=== PATIENT | female | born 1930 | race Caucasian/White ===

== ENCOUNTER 2017-07-19 11:31 | Emergency (ER) | payer MEDICARE, BC ==
--- NOTE | 2017-07-19 11:49 | Emergency Department Record ---
History of Present Illness - General Chief Complaint: Difficulty Breathing Stated Complaint: REBECCA Time Seen by Provider: 07/19/17 11:41 Source: Patient, Family Mode of Arrival: Ambulatory Limitations: No limitations - History of Present Illness Initial Comments: 86 yo fe86 yo female presents with shortness of breath. The patient was original from [place]. She was diagnosed with pneumonia. She moved to [place] to rehab near [facility]. She is a former smoker. She is on 2 liters NC. Today the care takers at [facility] noted her oxygen level was low. She was reportedly 67-85%. The patient states she was asymptomatic. On arrival in the ED the patient is asymptomatic at 96% on her 2 Liters. She has been coughing for about 2 month since the pneumonia diagnosis. This is unchanged. She reports she has chronic atrial fibrillation. No fevers. No chest pain. No new edema. No new weakness or changes in her health. Her daughter states when she arrived at [facility] the patient appeared comfortable in her normal state of health. The patient had a heart cath 2 years ago that did not demonstrate any obstructive CAD. She has decided with her doctors to not take life long anticoagulation for her atrial fibrillation. She states she does very well on digoxin and went into CHF when it was discontinued. Normal appetite. No NVD or dysuria MD Complaint: Cough (chronic), Shortness of breath -: Unknown (No symptoms) Severity: Mild (No symptoms) Consistency: Other (Asymptomatic) Improves With: Nothing Worsens With: Nothing Known History Of: Congestive heart failure, COPD, Other Context: Recent URI (Pneumonia) Associated Symptoms: Denies other symptoms Treatments Prior to Arrival: None - Related Data Home Oxygen Therapy: Yes Home Oxygen Amount: 2 Liters Home Medications Medication Instructions Recorded Confirmed Last Taken Aspirin [Aspir-Low] 81 mg PO DAILY 07/19/17 07/19/17 Unknown Budesonide/Formoterol Fumarate 6.9 gm IH BID 07/19/17 07/19/17 Unknown [Symbicort 80-4.5 Mcg Inhaler] Digoxin 125 mcg PO DAILY 07/19/17 07/19/17 07/19/17 Diltiazem HCl [Diltiazem 24Hr Cd] 120 mg PO DAILY 07/19/17 07/19/17 07/19/17 Fenofibrate Nanocrystallized 145 mg PO DAILY 07/19/17 07/19/17 07/19/17 [Fenofibrate] Fluticasone Propionate [Flonase] 2 spray EACH NARES DAILY 07/19/17 07/19/17 Fluticasone/Vilanterol [Breo 1 each IH DAILY 07/19/17 07/19/17 Unknown Ellipta 100-25 Mcg INH] Furosemide [Lasix] 20 mg PO DAILY 07/19/17 07/19/17 07/19/17 Glimepiride [Amaryl] 1 mg PO DAILY 07/19/17 07/19/17 Unknown Ibuprofen [Motrin 400Mg] 400 mg PO Q6H PRN 07/19/17 07/19/17 Unknown Insulin Lispro [Humalog] 1 unit SQ TID 07/19/17 07/19/17 Unknown Ipratropium Br. 0.02% Neb 0.5 mg IH Q4H 07/19/17 07/19/17 Unknown [Atrovent 0.02% Neb] Metoprolol Tartrate [Lopressor] 25 mg PO Q8H 07/19/17 07/19/17 Unknown Pantoprazole Sodium [Protonix] 40 mg PO DAILY 07/19/17 07/19/17 07/19/17 Prednisone [Prednisone 5Mg] 5 mg PO DAILY 07/19/17 07/19/17 07/19/17 Saxagliptin HCl [Onglyza] 5 mg PO DAILY 07/19/17 07/19/17 07/19/17 Temazepam [Restoril] 15 mg PO QHS 07/19/17 07/19/17 07/18/17 Allergies Allergy/AdvReac Type Severity Reaction Status Date / Time belladonna alkaloids Allergy PT UNSURE Verified 07/19/17 11:53 OF REACTION morphine Allergy PT UNSURE Verified 07/19/17 11:53 OF REACTION Review of Systems Constitutional: Denies: Chills, Fever, Malaise, Weakness Eyes: Denies: Eye discharge, Eye pain, Photophobia, Vision change ENT: Denies: Congestion, Throat pain Respiratory: Reports: Cough, Wheezes. Denies: Dyspnea, Hemoptysis, Stridor Cardiovascular: Reports: Palpitations (atrial fibrillation). Denies: Chest pain , Syncope Endocrine: Denies: Fatigue, Polydipsia, Polyuria Gastrointestinal: Denies: Abdominal pain, Diarrhea, Nausea, Vomiting Genitourinary: Denies: Dysuria, Urgency Musculoskeletal: Denies: Arthralgia, Back pain, Joint swelling, Myalgia Skin: Denies: Bruising, Change in color, Rash Neurological: Denies: Numbness, Tremors, Weakness Psychiatric: Denies: Anxiety Hematological/Lymphatic: Denies: Easy bleeding, Easy bruising, Swollen glands Physical Exam - General General Appearance: Alert, Oriented x3, Cooperative, No acute distress, Other ( Well appearing, no conversational dyspnea) Limitations: No limitations - Head Head exam: Normal inspection - Eye Eye exam: Normal appearance, PERRL. negative: Conjunctival injection, Scleral icterus - ENT ENT exam: Normal exam, Mucous membranes moist Ear exam: Normal external inspection Nasal Exam: Normal inspection Mouth exam: Normal external inspection - Neck Neck exam: Normal inspection - Respiratory Respiratory exam: Wheezes (very faint end expiratory wheeze), Other (Calm breathing). negative: Accessory muscle use, Chest wall tenderness, Decreased breath sounds, Rales, Respiratory distress, Rhonchi, Stridor - Cardiovascular Cardiovascular Exam: Regular rate, Normal heart sounds, Irregular rhythm Peripheral Pulses: 2+: Radial (R), Radial (L) - GI/Abdominal GI/Abdominal exam: Soft. negative: Tenderness - Rectal Rectal exam: Deferred - exam: Deferred - Extremities Extremities exam: Normal inspection, Full ROM, Normal capillary refill. negative: Calf tenderness, Pedal edema, Tenderness - Back Back exam: Reports: Normal inspection - Neurological Neurological exam: Alert, Normal gait, Oriented X3 - Psychiatric Psychiatric exam: Normal affect, Normal mood - Skin Skin exam: Dry, Intact, Normal color, Warm Course - Reevaluation(s) Reevaluation #1: EKG irregular ectopic rhythm rate is 71, intervals normal, axis L, NS ST changes. No old. The pulse ox remains at 96% on her 2 LNC. The patient is not short of breath, no conversational dyspnea. 07/19/17 12:18 07/19/17 12:43 96% on the monitor on 2 LNC Long conversation without dyspnea. 07/19/17 13:36 The labs were reviewed No acute changes on the CBC The CMP without significant changes. BNP elevated at 1140. The CXR was read as hyperinflation, linear opacity of the left mid lung, no PVC or effusion. No old CXR for comparison. She states she has been told she had a "scar" on the left in the past During the ED stay the HR has been well controlled. The pulse ox has remained 96-98% the entire stay. 07/19/17 13:43 The patient remains asymptomatic She has not had any acute issues during this ED visit She is afebrile, no discolored productive sputum, no hypoxia, no tachycardia, no edema, DC to [facility] 07/19/17 13:48 Medical Decision Making - Lab Data Result diagrams: 07/19/17 12:25 07/19/17 12:25 Disposition Disposition: Discharge Clinical Impression: Atrial fibrillation, COPD (chronic obstructive pulmonary disease) Disposition: Home, Self-Care Condition: (1) Good Instructions: Dyspnea (ED) Additional Instructions: Return to the ER if you have any rapid heart rate, fever, short of breath or any new concerns Follow up with the physician at the [facility]. Continue your current medications that your are taking Forms: Patient Portal Access Time of Disposition: 13:48 Quality - Quality Measures Quality Measures: N/A - Blood Pressure Screening Does Patient Have Any of the Following: No Blood Pressure Classification: Normal BP Reading Systolic Measurement: 97 Diastolic Measurement: 69 Screening for High Blood Pressure: < Normal BP, F/U Not Required > [G8783]
[2017-07-19 12:41] LABS: BASO % 0.2 % (0-6); HEMATOCRIT 44.1 % (35.0-47.0); HEMOGLOBIN 13.8 gm/dl (11.6-16.0); LYMPH % 6.3 % (16-45); MEAN CELL VOLUME 96.5 fl (81-97); MEAN CORPUSCULAR HEMOGLOBIN 30.2 pg (27-33); MEAN CORPUSCULAR HGB CONC 31.3 g/dl (32-36); MEAN PLATELET VOLUME 11.4 fl (7.4-10.4); MONO % 5.9 % (0-9); PLATELET COUNT 188 K/uL (130-400); RED BLOOD COUNT 4.57 M/uL (3.80-5.40); RED CELL DISTRIBUTION WIDTH 13.8 % (11.5-14.5); WHITE BLOOD COUNT W/O DIFF 12.4 K/uL (4.2-12.2)
[2017-07-19 12:58] LABS: DIGOXIN 1.6 ng/mL (0.8-2.0)
[2017-07-19 13:09] LABS: BLOOD UREA NITROGEN 25 mg/dL (8-23); CREATININE 0.6 mg/dL (0.5-0.9); EST GLOMERULAR FILTRATION RATE > 60 mL/min
[2017-07-19 13:12] LABS: GLUCOSE,RANDOM 190 mg/dL (74-109)
[2017-07-19 13:14] LABS: PLATELET ESTIMATE NORMAL (NORMAL)
--- NOTE | 2017-07-20 13:46 | RADIOLOGY REPORT ---
EXAM: CHEST 2 VIEWS HISTORY: DIFFICULTY IN BREATHING. TECHNIQUE: Frontal and lateral views of the chest were performed. FINDINGS: Heart size is normal. Lungs are hyperinflated with underlying emphysema. There is a linear opacity in the left mid lung. This may relate to scar tissue. There is underlying osteopenia. There are compression fracture deformities in the lower thoracic spine/upper lumbar spine. IMPRESSION: 1. HYPERINFLATED LUNGS WITH SEVERE UNDERLYING EMPHYSEMA. LINEAR OPACITY LEFT MID LUNG. 2. OSTEOPENIA. COMPRESSION FRACTURE DEFORMITIES AT THE THORACOLUMBAR JUNCTION. JOB [facility]BER: [id number] [facility]
== END 2017-07-19 13:50 | disposition home or self-care (01) ==
LOC: ER 11:31
DX: I48.2 Chronic atrial fibrillation (principal); J44.9 Chronic obstructive pulmonary disease, unspecified; R06.02 Shortness of breath; E11.9 Type 2 diabetes mellitus without complications; Z79.4 Long term (current) use of insulin
CPT/HCPCS: 71046; 80048; 80162; 83880; 85027; 93005; 93010; 99284